=== PATIENT | female | born 1995 | race Caucasian/White ===

== ENCOUNTER 2019-02-26 19:39 | Emergency (ER) | payer OTHER ==
[~2019-02-26] VITALS: Ht 152.4 cm; Wt 51.4 kg
[2019-02-26] MEDS ORDERED: ZOLO25TA PO (20:35)
[2019-02-26] MEDS ORDERED: IBUPROFEN 600 MG TAB PO ONE (20:45)
[2019-02-26] MEDS ORDERED: METOCLOPRAMIDE 10 MG TAB PO ONE (20:45)
--- NOTE | 2019-02-26 20:52 | REPVR ---
EXAM: CT Cervical Spine Without Contrast EXAM DATE/TIME: 02/26/2019 7:54 PM CLINICAL HISTORY: 23 years old, female; Injury or trauma; Fall; Initial encounter; Blunt trauma; Additional info: Fall injury TECHNIQUE: Imaging protocol: Computed tomography images of the cervical spine without contrast. Radiation optimization: All CT scans at this facility use at least one of these dose optimization techniques: automated exposure control; mA and/or kV adjustment per patient size (includes targeted exams where dose is matched to clinical indication); or iterative reconstruction. COMPARISON: No relevant prior studies available. FINDINGS: Vertebrae: No acute fracture. Normal alignment. Discs/Spinal canal/Neural foramina: No spinal stenosis. No neural foraminal narrowing. Soft tissues: Unremarkable. Lungs: Lung apices are normal. IMPRESSION: No acute findings. Electronically signed by: Kate Correa On 02/26/2019 20:52:38 PM
--- NOTE | 2019-02-26 21:06 | REPVR ---
EXAM: CT Head Without Contrast EXAM DATE/TIME: 02/26/2019 7:54 PM CLINICAL HISTORY: 23 years old, female; Injury or trauma; Fall; Initial encounter; Concussion / head injury; Consciousness not specified; Additional info: Fall injury TECHNIQUE: Imaging protocol: Computed tomography of the head without contrast. Radiation optimization: All CT scans at this facility use at least one of these dose optimization techniques: automated exposure control; mA and/or kV adjustment per patient size (includes targeted exams where dose is matched to clinical indication); or iterative reconstruction. COMPARISON: No relevant prior studies available. FINDINGS: Brain: Normal. No hemorrhage. Unremarkable white matter. No mass effect. Ventricles: Normal. No ventriculomegaly. Bones/joints: Unremarkable. No acute fracture. Sinuses: Visualized sinuses are unremarkable. No fluid levels. Mastoid air cells: Visualized mastoid air cells are well aerated. Soft tissues: Unremarkable. IMPRESSION: No acute intracranial abnormality. Electronically signed by: Kate Correa On 02/26/2019 21:06:23 PM
[2019-02-26 21:25] VITALS: BP 121/67
[2019-02-26] MEDS ORDERED: ZOFR4TAB16 PO (21:26)
== END 2019-02-26 21:34 | disposition home or self-care (01) ==
LOC: M ED 19:39
DX: S06.0X0A Concussion without loss of consciousness, initial encounter (principal); W10.8XXA Fall (on) (from) other stairs and steps, initial encounter; Y92.019 Unspecified place in single-family (private) house as the place of occurrence of the external cause; Z88.0 Allergy status to penicillin; Z79.899 Other long term (current) drug therapy

== ENCOUNTER → 2021-07-16 | Outpatient (CLI) | payer OTHER ==
[~2021-07-16] MED LIST: ISOVUE-370 76% 100ML VIAL As Ordered ONE; ZOFR4TAB16 PO; ZOLO25TA PO
== END ==
LOC: M RADPRO 11:34
PROVIDERS: ATTEND Obstetrics & Gynecology
DX: N97.9 Female infertility, unspecified (principal)
CPT/HCPCS: 58340; 74740; Q9967